=== PATIENT | male | born 1985 | race Two or more races ===

== ENCOUNTER 2020-12-31 12:17 | Emergency (ER) | payer BC ==
[~2020-12-31] VITALS: Ht 170.2 cm; Wt 72.6 kg
[2020-12-31] MEDS ORDERED: SINGULAIR4 M1 PO (12:44)
[2020-12-31] MEDS ORDERED: ZYRTEC10 M3 PO (12:46)
[2020-12-31] MEDS ORDERED: ADVAIR 100-501 EACH IH (12:47)
== END 2020-12-31 13:52 | disposition home or self-care (01) ==
LOC: ER 12:17
DX: B20 Human immunodeficiency virus [HIV] disease (principal); R53.81 Other malaise; R00.2 Palpitations; R42 Dizziness and giddiness; F41.9 Anxiety disorder, unspecified; T37.5X1A Poisoning by antiviral drugs, accidental (unintentional), initial encounter; Y92.89 Other specified places as the place of occurrence of the external cause